=== PATIENT | female | born 1980 | race Caucasian/White ===

== ENCOUNTER 2016-08-29 18:43 | Emergency (ER) | payer OTHER ==
[~2016-08-29] VITALS: Ht 167.6 cm; Wt 94.3 kg
[~2016-08-29 18:43] MED LIST: Atarax,Vistaril PO; CITALOPRAM; CITALOPRAM HBR40 M1 PO; DESYREL100 MG PO; ESKALITH300 M1 PO; GABAPENTIN300 M1 PO; GLUCOPHAGE500 M1 PO; GLUCOPHAGE500 MG PO; HYDROXYZINE HCL50 MG PO; KLONOPIN; KLONOPIN2 MG PO; METFORMIN; NEURONTIN300 MG PO; PROAIR HFA8.5 GM IH; SEROQUEL XR200 MG PO; SEROQUEL100 MG PO; TRAZODONE HCL100 MG PO; celeXA PO
[2016-08-29] MEDS ORDERED: NARCAN4 MG NS (20:04)
[2016-08-29 20:44] VITALS: BP 105/72
== END 2016-08-29 20:45 | disposition home or self-care (01) ==
LOC: EME → EDBD 18:43 → EME 20:45
DX: T40.1X1A Poisoning by heroin, accidental (unintentional), initial encounter (principal); R40.20 Unspecified coma; Y92.512 Supermarket, store or market as the place of occurrence of the external cause; F11.10 Opioid abuse, uncomplicated; I10 Essential (primary) hypertension; E11.9 Type 2 diabetes mellitus without complications; Z79.84 Long term (current) use of oral hypoglycemic drugs; F32.9 Major depressive disorder, single episode, unspecified; F41.9 Anxiety disorder, unspecified; F17.200 Nicotine dependence, unspecified, uncomplicated
CPT/HCPCS: 99281; 99284; J2310